=== PATIENT | female | born 1990 | race Caucasian/White ===

== ENCOUNTER → 2019-07-20 | Outpatient (REF) | payer BC ==
[2019-07-21 10:41] LABS: HEPATITIS B SURFACE ANTIBODY POSITIVE (POSITIVE); HEPATITIS B SURFACE ANTIGEN NEGATIVE (NEGATIVE); RUBELLA IgG QUALITATIVE IMMUNE (IMMUNE)
[2019-07-22 14:56] LABS: HEPATITIS B CORE ANTIBODY IGG Negative (Negative); HERPES ZOSTER, VARICELLA IgG 1891 index (Immune >165)
== END ==
LOC: M SFHCPLAZ 14:07
DX: Z01.84 Encounter for antibody response examination (principal)